=== PATIENT | male | born 1940 | race Caucasian/White ===

== ENCOUNTER 2023-01-01 12:16 | Emergency (ER) | payer MEDICARE, BC ==
[2023-01-01] MEDS ORDERED: Sodium Chloride 0.9% 10 ML Syringe FLUSH PRN (12:38)
[2023-01-01 12:49] LABS: BASOPHILS ABSOLUTE AUTO 0.05 K/uL (0.00-0.20); BASOPHILS PERCENT AUTO 0.6 % (0.0-2.0); EOSINOPHILS ABSOLUTE AUTO 0.15 K/uL (0.00-0.50); EOSINOPHILS PERCENT AUTO 1.7 % (0.0-5.0); HEMATOCRIT 38.8 % (39.0-49.0); HEMOGLOBIN 12.8 g/dL (13.1-16.8); LYMPHOCYTES ABSOLUTE AUTO 2.72 K/uL (0.50-3.50); LYMPHOCYTES PERCENT AUTO 30.8 % (10.0-50.0); MEAN CORPUSCULAR HEMOGLOBIN 30.6 pg (28.2-33.3); MEAN CORPUSCULAR VOLUME 92.8 fL (84.0-98.0); MONOCYTES ABSOLUTE AUTO 0.88 K/uL (0.00-1.00); NEUTROPHILS ABSOLUTE AUTO 5.04 K/uL (1.40-7.00); NEUTROPHILS PERCENT AUTO 56.9 % (45.0-80.0); PLATELET COUNT,PLT 219 K/uL (150-350); RED BLOOD CELL COUNT 4.18 M/uL (4.33-5.41); RED CELL DISTRIBUTION WIDTH 14.6 % (11.2-14.1); WHITE BLOOD CELL COUNT,WBC 8.8 K/uL (4.0-10.2)
[2023-01-01 13:10] LABS: ALANINE AMINOTRANSFERASE,ALT 16 U/L (12-78); ALBUMIN 3.1 g/dL (3.4-5.0); ALKALINE PHOSPHATASE 78 IU/L (46-116); ASPARTATE AMNIOTRANSFERASE,AST 12 U/L (15-37); BILIRUBIN TOTAL 0.4 mg/dL (0.2-1.0); BLOOD UREA NITROGEN,BUN 20 mg/dL (7-18); CALCIUM 9.1 mg/dL (8.5-10.1); CHLORIDE,CL 106 mmol/L (98-107); CREATININE 0.91 mg/dL (0.51-1.17); GLUCOSE RANDOM 89 mg/dL (70-99); MAGNESIUM 1.9 mg/dL (1.8-2.4); POTASSIUM,K 4.4 mmol/L (3.5-5.1); PRO B-TYPE NATRIUR PEPT,BNPPRO 83 pg/mL (0-125); PROTEIN TOTAL,TP 6.2 g/dL (6.4-8.2); SODIUM,NA 138 mmol/L (136-145)
[2023-01-01 13:11] LABS: ESTIMATED GFR 83 mL/min (>=60)
[2023-01-01 13:21] LABS: INR 1.2
[2023-01-01 14:58] VITALS: BP 141/76; PULSE 67
== END 2023-01-01 14:45 | disposition home or self-care (01) ==
LOC: LL.ED 12:16
DX: I69.30 Unspecified sequelae of cerebral infarction (principal); I10 Essential (primary) hypertension; E78.00 Pure hypercholesterolemia, unspecified; I48.91 Unspecified atrial fibrillation; K21.9 Gastro-esophageal reflux disease without esophagitis; Z88.0 Allergy status to penicillin; Z79.01 Long term (current) use of anticoagulants; Z79.82 Long term (current) use of aspirin; Z79.899 Other long term (current) drug therapy
CPT/HCPCS: 36415; 70450; 80053; 83605; 83735; 83880; 85025; 85379; 85610; 93005; 93010; 99284; 99285